=== PATIENT | male | born 1995 | race Caucasian/White ===

== ENCOUNTER 2017-08-17 08:57 | Emergency (ER) | payer SELFPAY ==
[2017-08-17 09:06] VITALS: BMI 20.3
[2017-08-17 09:09] VITALS: TEMP 98.2
--- NOTE | 2017-08-17 10:01 | ED PDOC ---
HPI: CCC, URI, Sore Throat Time Seen by Provider: 08/17/17 09:39 Chief Complaint (Nursing): ENT Problem History Per: Patient (this 21 yo male is here because of sore throat, cough, congestion and left ear pain. His kid is sick. He thinks he may have strep throat.) Past Medical History Reviewed: Historical Data, Nursing Documentation, Vital Signs Vital Signs: Last Vital Signs Temp 98.2 F 08/17/17 09:07 Pulse 104 H 08/17/17 09:07 Resp 20 08/17/17 09:07 BP 122/69 08/17/17 09:07 Pulse Ox 97 08/17/17 09:07 - Medical History PMH: No Chronic Diseases - Surgical History Surgical History: No Surg Hx - Family History Family History: States: Unknown Family Hx - Living Arrangements Living Arrangements: With Family - Social History Current smoker - smoking cessation education provided: No Alcohol: None - Immunization History Hx Influenza Vaccination: Yes - Home Medications Home Medications: Ambulatory Orders Medication Instructions Recorded Azithromycin [Zithromax Z-Keagan] 250 mg PO DAILY #1 packet 02/01/15 Ibuprofen [Motrin] 600 mg PO Q6H PRN #15 tab 02/01/15 Benzocaine/Menthol [Cepacol Sore 1 each MM Q6 PRN #15 lozenge 03/26/16 Throat Lozenge] Amoxicillin 875 mg PO BID #20 tablet 08/17/17 Guaifenesin/Pseudoephedrne HCl 1 ter PO Q12H PRN #10 ter 08/17/17 [Mucinex D 600 mg-60 mg] - Allergies Allergies/Adverse Reactions: Allergies Allergy/AdvReac Type Severity Reaction Status Date / Time No Known Allergies Allergy Verified 02/01/15 21:39 Review of Systems ROS Statement: Except As Marked, All Systems Reviewed And Found Negative Constitutional: Negative for: Fever ENT: Positive for: Ear Pain (left), Nose Congestion, Throat Pain Respiratory: Positive for: Cough Gastrointestinal: Negative for: Nausea, Vomiting, Abdominal Pain Neurological: Positive for: Headache Physical Exam - Reviewed Nursing Documentation Reviewed: Yes Vital Signs Reviewed: Yes - Physical Exam Appears: Positive for: Well, Non-toxic, No Acute Distress Head Exam: Positive for: ATRAUMATIC, NORMAL INSPECTION, NORMOCEPHALIC Skin: Positive for: Normal Color, Warm, DRY Eye Exam: Positive for: Normal appearance ENT: Positive for: Pharynx Is (mildly erythematous; no exudates or petechiae), TM Is/Are (erythematous on the left side) Neck: Positive for: Normal, Painless ROM Cardiovascular/Chest: Positive for: Regular Rate, Rhythm Respiratory: Positive for: CNT, Normal Breath Sounds Gastrointestinal/Abdominal: Positive for: Normal Exam, Soft Back: Positive for: Normal Inspection Extremity: Positive for: Normal ROM Neurologic/Psych: Positive for: Alert, Oriented - ECG O2 Sat by Pulse Oximetry: 97 Disposition - Clinical Impression Clinical Impression: URI (upper respiratory infection), Left otitis media - Patient ED Disposition Is Patient to be Admitted: No Doctor Will See Patient In The: Office Counseled Patient/Family Regarding: Diagnosis, Need For Followup, Rx Given - Disposition Referrals: Rowena Meyer [Outside] Disposition: Routine/Home Disposition Time: 10:03 Condition: STABLE Prescriptions: Amoxicillin 875 mg PO BID #20 tablet Guaifenesin/Pseudoephedrne HCl [Mucinex D 600 mg-60 mg] 1 ter PO Q12H PRN #10 ter PRN Reason: cough/congestion Instructions: Ear Infections (Otitis Media) (DC) - POA Present On Arrival: None
[2017-08-17 10:25] VITALS: BP 128/76; PULSE 92; RESP 18; O2SAT 99
== END 2017-08-17 10:17 | disposition home or self-care (01) ==
LOC: H.ER 08:57
DX: H66.92 Otitis media, unspecified, left ear (principal); J06.9 Acute upper respiratory infection, unspecified

== ENCOUNTER 2018-01-02 09:15 | Emergency (ER) | payer MEDICAID, OTHER ==
[2018-01-02 09:15] VITALS: BMI 20.3
[2018-01-02 09:22] VITALS: RESP 18; TEMP 98.5; O2SAT 100
[2018-01-02] MEDS ORDERED: PROPARACAINE/FLUORESCEIN SOD 100 DROP/5 ML BOTTLE OU STA (09:43)
[2018-01-02] MEDS ORDERED: Tdap Vaccine 0.5 ml Vial (10-64 yrs) IM ONE (09:50)
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
[2018-01-02 11:37] VITALS: BP 130/80; PULSE 77
== END 2018-01-02 10:22 | disposition home or self-care (01) ==
LOC: H.ER 09:15
DX: S05.00XA Injury of conjunctiva and corneal abrasion without foreign body, unspecified eye, initial encounter (principal); Y92.89 Other specified places as the place of occurrence of the external cause

== ENCOUNTER 2018-04-13 19:47 | Emergency (ER) | payer OTHER ==
[2018-04-13 19:47] VITALS: BMI 20.3
--- NOTE | 2018-04-13 21:21 | ED PDOC ---
HPI: Abdomen Time Seen by Provider: 04/13/18 20:23 Chief Complaint (Nursing): GI Problem Chief Complaint (Provider): N/V and diarrhea Additional Complaint(s): 22 y/o M with no significant PMH who presents with N/V and diarrhea since today. NO abdominal pain. + body aches and chills. Son is admitted with the Flu. Pt has received the Influenza vaccine. + chills and feeling weak. He has been able to tolerate some fluids. Denies dizziness, palpitations, abdominal pain, cough, fever, sore throat or ear pain. Past Medical History Reviewed: Historical Data, Nursing Documentation, Vital Signs Vital Signs: Last Vital Signs Temp 97.8 F 04/13/18 20:20 Pulse 111 H 04/13/18 20:20 Resp 20 04/13/18 20:20 BP 100/60 04/13/18 20:20 Pulse Ox 99 04/13/18 20:20 - Medical History PMH: No Chronic Diseases - Family History Family History: States: Unknown Family Hx - Immunization History Hx Tetanus Toxoid Vaccination: No (unknown) Hx Influenza Vaccination: Yes - Home Medications Home Medications: Ambulatory Orders Medication Instructions Recorded Azithromycin [Zithromax Z-Keagan] 250 mg PO DAILY #1 packet 02/01/15 Ibuprofen [Motrin] 600 mg PO Q6H PRN #15 tab 02/01/15 RX: Benzocaine/Menthol [Cepacol 1 each MM Q6 PRN #15 lozenge 03/26/16 Sore Throat Lozenge] Guaifenesin/Pseudoephedrne HCl 1 ter PO Q12H PRN #10 ter 08/17/17 [Mucinex D 600 mg-60 mg] RX: Amoxicillin 875 mg PO BID #20 tablet 08/17/17 Ondansetron ODT [Zofran ODT] 4 mg PO Q8 PRN 2 Days odt 04/13/18 - Allergies Allergies/Adverse Reactions: Allergies Allergy/AdvReac Type Severity Reaction Status Date / Time No Known Allergies Allergy Verified 04/13/18 20:19 Review of Systems Constitutional: Positive for: Chills. Negative for: Fever ENT: Negative for: Ear Pain Cardiovascular: Negative for: Chest Pain Respiratory: Negative for: Cough, Shortness of Breath Gastrointestinal: Positive for: Nausea, Vomiting, Diarrhea. Negative for: Abdominal Pain Physical Exam - Reviewed Nursing Documentation Reviewed: Yes Vital Signs Reviewed: Yes - Physical Exam Appears: Positive for: Uncomfortable Head Exam: Positive for: ATRAUMATIC Skin: Positive for: Normal Color ENT: Positive for: Normal ENT Inspection Neck: Positive for: Normal Cardiovascular/Chest: Positive for: Regular Rate, Rhythm Respiratory: Positive for: Normal Breath Sounds Gastrointestinal/Abdominal: Positive for: Normal Exam. Negative for: Tenderness, Distended, Guarding Lymphatic: Positive for: Normal Exam Neurologic/Psych: Positive for: Alert, Oriented - Laboratory Results Result Diagrams: 04/13/18 21:40 04/13/18 21:40 - ECG O2 Sat by Pulse Oximetry: 99 Medical Decision Making Medical Decision Making: CBC, CMP Zofran 4mg IV x 1 NS 1L IV X 1 Rapid Flu 22:54: re-assessed: feeling better after fluids, nausea has improved, no further vomiting or diarrhea. Labs: WBC 13K but otherwise unremarkable. Pt to have PO challenge and if tolerates, will be stable for discharge 23:00: HR 115, patient feeling well. Additional NS 1L IV x 1 ordered. 00:19: pt feeling well, HR 109, pt states that he has been told that he has some anxiety b/c his HR has been known to be high in the past. Denies palpitations, dizziness, further vomiting, abdominal pain. VS otherwise stable and patient afebrile. Stable for d/c home with f/u with PMD. Return instructions given. Patient tolerated PO challenge w/o any further vomiting or diarrhea. Disposition - Clinical Impression Clinical Impression: Viral gastroenteritis - Disposition Referrals: Ioana Ledezma MD [Staff Provider] - Disposition: Routine/Home Disposition Time: 00:21 Condition: STABLE Additional Instructions: Avoid fatty or milky products while you are having symptoms. Eat bland foods such as applesauce, tea, toast, bananas and rice. Return to ER if you are unable to drink anything and are feeling very weak. Prescriptions: Ondansetron ODT [Zofran ODT] 4 mg PO Q8 PRN 2 Days odt PRN Reason: Nausea/Vomiting Instructions: Viral Gastroenteritis, Adult (DC) Forms: [employer] (Czech) Print Language: SERBIAN
[2018-04-13] MEDS ORDERED: Sodium Chloride 0.9% 1,000 ML IV SCH (21:30)
[2018-04-13 21:56] LABS: BASO % 0.3 % (0.0-2.0); HEMOGLOBIN 15.7 g/dL (12.0-18.0); LYMPH # 0.3 K/uL (1.0-4.3); LYMPH % 1.9 % (20.0-40.0); MEAN CELL VOLUME 91.3 fl (80.0-94.0); MEAN CORPUSCULAR HEMOGLOBIN 30.9 pg (27.0-31.0); MEAN CORPUSCULAR HGB CONC 33.8 g/dL (33.0-37.0); MEAN PLATELET VOLUME 8.5 fl (7.2-11.7); MONO # 1.1 K/uL (0.0-0.8); MONO % 8.1 % (0.0-10.0); NEUT # 12.2 K/uL (1.8-7.0); NEUT % 89.7 % (50.0-75.0); PLATELET COUNT 255 K/uL (130-400); RBC 5.08 Mil/uL (4.40-5.90); WHITE BLOOD COUNT 13.6 K/uL (4.8-10.8)
[2018-04-13 22:06] LABS: ALB/GLOB RATIO 1.3 (1.0-2.1); ALBUMIN 4.5 g/dL (3.5-5.0); ALT/SGPT 38 U/L (21-72); AST/SGOT 30 U/L (17-59); BLOOD UREA NITROGEN 15 mg/dl (9-20); CALCIUM 9.4 mg/dL (8.4-10.2); GFR NON-AFRICAN AMERICAN > 60
[2018-04-13 22:39] LABS: BANDS 4 % (0-2); LYMPHOCYTE 2 % (20-50); MONOCYTE 7 % (0-10); NEUTROPHIL 87 % (42-75); PLATELET ESTIMATE NORMAL (NORMAL); TOTAL CELLS COUNTED 100
[2018-04-13] MEDS ORDERED: Sodium Chloride 0.9% 1,000 ML IV STA (23:09)
[2018-04-13 23:11] VITALS: RESP 18
[2018-04-14 00:20] VITALS: BP 106/59; PULSE 108; TEMP 99.2
[2018-04-14 00:21] VITALS: O2SAT 99
== END 2018-04-14 00:20 | disposition home or self-care (01) ==
LOC: H.ER 19:47
DX: A08.4 Viral intestinal infection, unspecified (principal)
CPT/HCPCS: 80053; 85025; 87804; 96361; 96374; 99284; J2405; J7030